=== PATIENT | male | born 1950 | race Caucasian/White ===

== ENCOUNTER 2021-08-24 21:29 | Inpatient (IN) | payer MEDICARE, OTHER ==
[~2021-08-24] VITALS: Ht 172.7 cm; Wt 78.0 kg
--- NOTE | 2021-08-24 23:10 | NUR ---
cable television line technician notes Notified MD regarding direct admit from [facility]. Awaiting for admission orders. Addendum: 08/25/21 at 0200 by HUMBERTO DONG RN wrong time.
--- NOTE | 2021-08-24 23:25 | NUR ---
BOILER TENDERS SUPERVISOR ADMITTING NOTES ADMITTED A 71 Y/0 MALE TO UNIT VIA [facility] ACCOMPANIED BY 2 EMT'S. PT. IS DIRECT ADMIT FROM [facility]. PT. IS A/O X 3-4, ABLE TO MAKE NEEDS KNOWN. IN NO APARRENT DISTRESS NOTED, BREATHING EVEN AND UNLABORED.LUNGS ARE CLEAR ON AUSCULTATION. ON R.A, MANUELA. WELL. NO S/SX OF PAIN AND DISCOMFORT AT THIS TIME. PT. WITH IV ACCESS ON HIS LFA, G#20, INTACT AND PATENT. ORIENTED THE PATIENT TO STAFF AND HIS IMMEDIATE SURROUNDING AND THE IMPORTANCE OF USING CALL LIGHT AND EXPRESSED UNDERSTANDING. PLACE PATIENT IN EXTERNAL ROCK PICKER WITH CURRENT READING OF NSR HR= 90'S, NO CARDIAC DISTRESS VOICED. PHOTOS OF SKIN ISSUES TAKEN AND FILED ON HIS CHART. SAFETY PRECAUTION INITIATED. BED PLACED IN LOWEST POSITION WITH SR-UP X2. CALL LIGHT AND BEDSIDE TABLE WITHIN EASY REACH. WILL CONTINUE TO MONITOR PT. ACCORDINGLY.
[2021-08-24 23:45] VITALS: BP 148/92
--- NOTE | 2021-08-24 23:45 | NUR ---
CATERING BARISTA NOTES PATIENT BG IS 436, PATIENT STATED THAT HE ATE SNACKS ( SANDWICH) BEFORE LEAVING CUT OFF AT [facility]. PATIENT DENIES OF NAUSEA AND WEAKNESS AT THIS TIME. WILL CONTINUE TO MONITOR
[2021-08-25] VITALS: BP 148/92
--- NOTE | 2021-08-25 | NUR ---
professor of surgery notes Asked Pt about his home meds. Pt stated "I have 15 meds lists but I don't remember all of them. I will do it in the morning."
--- NOTE | 2021-08-25 00:05 | NUR ---
telephone sales representative notes Called and informed MD regarding new admissions order. Awaiting for admission orders.
--- NOTE | 2021-08-25 01:05 | NUR ---
telecommunications equipment installer notes Notified MD for second time regarding direct admit from [facility]. Awaiting for admission orders.
--- NOTE | 2021-08-25 02:30 | NUR ---
pin puller notes Called MD for third time to get admission order.
--- NOTE | 2021-08-25 03:05 | NUR ---
RN NOTES SPOKE TO MD CHAVEZ AND GAVE ORDERS FOR ACCUCHECK, INSULIN SLIDING SCALE AND DIET ORDERS, NOTED AND CARRIED OUT. WILL CONTINUE TO MONITOR PATIENT ACCORDINGLY
[2021-08-25] MEDS ORDERED: DEXTROSE 50%-WATER 50 ML DISP.SYRIN IV PRN (03:30)
--- NOTE | 2021-08-25 03:30 | NUR ---
horse breaker notes Collected UA from Pt. Called lab to metal pickling equipment operator the specimen.
[2021-08-25 04:00] VITALS: BP_SYST 143; BP_SYST 158; BP_DIAS 104; BP_DIAS 91
--- NOTE | 2021-08-25 06:35 | NUR ---
OUTBOUND SALES EXECUTIVE CLOSING PT. IS A/O X 3-4, ABLE TO MAKE NEEDS KNOWN. IN NO APARRENT DISTRESS NOTED, BREATHING EVEN AND UNLABORED.LUNGS ARE CLEAR ON AUSCULTATION. ON R.A, MANUELA. WELL. NO S/SX OF PAIN AND DISCOMFORT AT THIS TIME. PT. WITH IV ACCESS ON HIS LFA, G#20, INTACT AND PATENT. PATIENT IN EXTERNAL PROFILE GRINDER WITH CURRENT READING OF NSR HR= 90'S, NO CARDIAC DISTRESS VOICED. SAFETY PRECAUTION IN PLACED.BED IN LOWEST POSITION WITH SR-UP X2. CALL LIGHT AND BEDSIDE TABLE WITHIN EASY REACH. WILL ENDORSED PATIENT TO DAY SHIFT NURSE FOR ALCON.
[2021-08-25] MEDS: INSULIN REGULAR, HUMAN 100 UNIT/ML 3 ML VIAL SQ PRN ×6 (06:44→23:00)
[2021-08-25] MEDS: BLOOD SUGAR DIAGNOSTIC 1 EACH STRIP IN SCH ×4 (06:48→21:48)
[2021-08-25 06:52] LABS: BASOPHILS % (AUTO) 0.5 % (0.0-2.0); EOSINOPHILS % (AUTO) 3.4 % (0.0-6.0); HEMATOCRIT 43 % (39-51); HEMOGLOBIN 14.7 g/dL (13.5-17.5); LYMPHOCYTES # (AUTO) 2.1 K/uL (0.8-4.8); LYMPHOCYTES % (AUTO) 32.4 % (20.0-44.0); MEAN CORPUSCULAR HGB CONC 34 g/dl (31.0-36.0); MEAN CORPUSCULAR VOLUME 91 fL (80-96); MONOCYTES # (AUTO) 0.6 K/uL (0.1-1.30); MONOCYTES % (AUTO) 9.7 % (2.0-12.0); NEUTROPHILS # (AUTO) 3.5 K/uL (1.8-8.9); PLATELET COUNT (AUTO) 247 K/uL (150-450); RED BLOOD CELL COUNT(AUTO) 4.75 MIL/uL (4.5-6.0); WHITE BLOOD COUNT (AUTO) 6.5 K/uL (4.3-11.0)
[2021-08-25 07:05] LABS: CREATININE 1.7 mg/dL (0.6-1.3); MAGNESIUM 1.9 mg/dL (1.8-2.4)
--- NOTE | 2021-08-25 07:30 | NUR ---
SISTER SUPERIOR NOTES PT IN BED, AWAKE, ALERT AND ORIENTED, NO COMPLAINT OF PAIN, NOT IN DISTRESS, STATES THAT HE WANTS TO BE SEEN BY A DOCTOR BY 9AM OR WILL LEAVE THE HOSPITAL.
[2021-08-25 08:00] VITALS: BP 134/81
--- NOTE | 2021-08-25 09:01 | NUR ---
MS RN NOTES PT SEEN AND EXAMINED BY DR. ESPINAL, DISCUSSED PLAN OF CARE WITH PT, PT VERBALIZED UNDERSTANDING, NO SI AT THIS TIME, ORDERS RECEIVED FROM MD TO START NS 100ML/HR.
[2021-08-25] MEDS ORDERED: TRINTELLIX PO (09:08)
[2021-08-25] MEDS ORDERED: INSU100C10 SQ (09:08)
[2021-08-25] MEDS ORDERED: BUPR150T12 PO (09:08)
[2021-08-25] MEDS ORDERED: QUET100T PO (09:08)
[2021-08-25] MEDS ORDERED: INSU100V7 SQ (09:08)
[2021-08-25] MEDS ORDERED: ACET325T53 PO (09:08)
[2021-08-25] MEDS: IV NS 0.9% 1,000 ML IV PRN ×2 (09:26→23:31)
[2021-08-25] MEDS ORDERED: LORAZEPAM 0.5 MG TABLET PO PRN (12:00)
[2021-08-25] MEDS: SERTRALINE HCL 25 MG TABLET PO SCH (12:45)
[2021-08-25 16:00] VITALS: BP 157/100
--- NOTE | 2021-08-25 18:57 | NUR ---
RN MS NOTES PT IN BED, AWAKE, ALERT AND ORIENTED, WATCHING TV, DENIES PAIN, NOT IN DISTRESS, COOPERATIVE AND COMPLIANT WITH CARE, CALL LIGHT WITHIN REACH, BS CHECKED, INSULIN GIVEN PER SLIDING SCALE ORDERED, ALL NEEDS ATTENDED.
--- NOTE | 2021-08-25 19:47 | NUR ---
GRANULATOR TENDER OPENING RECEIVED PT. IS A/O X 3-4, ABLE TO MAKE NEEDS KNOWN. IN NO APARRENT DISTRESS NOTED, BREATHING EVEN AND UNLABORED.LUNGS ARE CLEAR ON AUSCULTATION. ON R.A, MANUELA. WELL. NO S/SX OF PAIN AND DISCOMFORT AT THIS TIME. PT. WITH IV ACCESS ON HIS LFA, G#20, INFUSING NS 100 ML/HR INTACT AND PATENT. SAFETY PRECAUTION IN PLACED.BED IN LOWEST POSITION WITH SR-UP X2. CALL LIGHT AND BEDSIDE TABLE WITHIN EASY REACH. WILL CONTINUE TO MONITOR PATIENT ACCORDINGLY.
[2021-08-25 20:04] VITALS: BP 146/86
--- NOTE | 2021-08-25 21:05 | NUR ---
RN NOTES PATIENT WITH BG OF 436. NO C/O WEAKNESS. RANDOM BLOOD GLUCOSE ORDERED BY . NOTED AND CARRIED OUT.
[2021-08-25] MEDS ORDERED: INSULIN REGULAR, HUMAN 100 UNIT/ML 3 ML VIAL SQ ONE (22:30)
--- NOTE | 2021-08-25 23:10 | NUR ---
DEALER RELATIONSHIP MANAGER NOTES PATIENT RANDOM BLOOD GLUCOSE IS 437, NOTIFIED AND ORDERED TO GIVE HUMULIN R 10 UNITS SQ FOR ONE TIME ONLY, ADMINISTERED TO THE PATIENT ORDERED
--- NOTE | 2021-08-25 23:10 | NUR ---
RN NOTES Informed Romaine Spain-PREET regarding patient's Glucose random result -437, got an order to change insulin sliding scale from mild to moderate, order noted and carried out
--- NOTE | 2021-08-25 23:49 | NUR ---
RN NOTES PATIENT VERBALIZES THAT HE IS ANXIOUS, ENCOURAGE PATIENT TO VERBALIZE MORE HIS FEELINGS AND CONCERN. PRN ATIVAN GIVEN ORDERED. WILL CONTINUE TO MONITOR PATIENT ACCORDINGLY
[2021-08-26] MEDS ORDERED: DEXTROSE 50%-WATER 50 ML DISP.SYRIN IV PRN (01:00)
[2021-08-26] MEDS ORDERED: INSULIN REGULAR, HUMAN 100 UNIT/ML 3 ML VIAL SQ PRN (01:00)
[2021-08-26] MEDS ORDERED: *INSULIN REGULAR(HUMULIN R)HUM 100 UNIT/ML VIAL SQ PRN (01:00)
[2021-08-26] MEDS: BLOOD SUGAR DIAGNOSTIC 1 EACH STRIP VI SCH ×2 (06:11→11:49)
[2021-08-26 06:19] LABS: BASOPHILS % (AUTO) 0.7 % (0.0-2.0); EOSINOPHILS % (AUTO) 4.2 % (0.0-6.0); HEMATOCRIT 44 % (39-51); HEMOGLOBIN 15.1 g/dL (13.5-17.5); LYMPHOCYTES # (AUTO) 2.3 K/uL (0.8-4.8); LYMPHOCYTES % (AUTO) 36.5 % (20.0-44.0); MEAN CORPUSCULAR HGB CONC 35 g/dl (31.0-36.0); MEAN CORPUSCULAR VOLUME 91 fL (80-96); MONOCYTES # (AUTO) 0.7 K/uL (0.1-1.30); MONOCYTES % (AUTO) 11.4 % (2.0-12.0); NEUTROPHILS % (AUTO) 47.2 % (43.0-81.0); PLATELET COUNT (AUTO) 223 K/uL (150-450); RED BLOOD CELL COUNT(AUTO) 4.81 MIL/uL (4.5-6.0); WHITE BLOOD COUNT (AUTO) 6.4 K/uL (4.3-11.0)
--- NOTE | 2021-08-26 06:25 | NUR ---
RN CLOSING NOTES PATIENT IN BED , A/O X 4.IN NO APARRENT DISTRESS NOTED BREATHING EVEN AND UNLABORED. ON R.A, MANUELA. WELL NO S/SX OF PAIN AND DISCOMFORT AT THIS TIME.PATIENT WITH IV AT LFA G=20 WITH IVF NS AT 100 ML/HR,INTACT AND PATENT. ALL NEEDS ATTENDED. ALL DUE MEDS GIVEN.SAFTEY MEASURES PROVIDED.BED LOCKED IN LOWEST POSITION W/ SRX2 UP.CALL LIGHT AND BED SIDE TABLE WITHI EASY REACH. ALL NEEDS ATTENDED.WILL ENDORSED PATIENT TO DAY TIME SHIFT NURSE FOR ALCON.
[2021-08-26 06:56] LABS: CALCIUM, SERUM 8.2 mg/dL (8.5-10.1); CREATININE 1.4 mg/dL (0.6-1.3); POTASSIUM 3.7 mmol/L (3.5-5.1)
--- NOTE | 2021-08-26 07:15 | NUR ---
MS RN NOTES PATIENT IS ASLEEP IN BED, EASY TO AROUSE. ALERT AND ORIENTED X4. NO SOB. NO S/SX OF DISTRESS NOTED. BREATHING IS EVEN AND UNLABORED. PT ON ROOM AIR, TOLERATING WELL. IV ACCESS LFA#20 PATENT AND INTACT WITH NS 0.9% RUNNING AT 100 MLS/HR. SAFETY MEASURES IN PLACE WITH BED LOCKED AT LOW POSITION AND SIDE RAILS UP X2. CALL LIGHT IS WITHIN REACH. WILL CONTINUE TO MONITOR THROUGHOUT SHIFT.
[2021-08-26] MEDS ORDERED: SERT25TA5 PO (08:35)
[2021-08-26] MEDS ORDERED: buPROPion SR 150 MG TABLET.ER PO SCH (09:00)
--- NOTE | 2021-08-26 09:05 | NUR ---
MS RN NOTE WELLBUTRIN OUT OF STOCK IN BOTH OMNICELL. PHARMACY MADE AWARE.
--- NOTE | 2021-08-26 11:46 | NUR ---
MS RN NOTE BS 1ST READING WAS 497, REPEAT BS 452. MADE DR. ESPINAL AWARE WITH NO NEW ORDERS. ADMINISTERED 15 UNITS OR REGULAR INSULIN PER SLIDING SCALE.
[2021-08-26] MEDS: SERTRALINE HCL 25 MG TABLET PO SCH (12:55)
--- NOTE | 2021-08-26 13:00 | NUR ---
MS OTR HAZMAT COMPANY DRIVER NOTE PT WAS DISCHARGED WITH STABLE VITAL SIGNS. DISCHARGE INSTRUCTIONS REVIEWED WITH PATIENT AND DISCHARGE FORM SIGNED. ALL QUESTIONS ANSWERED, VERBALIZED UNDERSTANDING. ID BAND AND IV ACCESS REMOVED. PATIENT WAS PICKED UP BY SISTER IN LAW AND NIECE. ACCOMPANIED PATIENT DOWNSTAIRS OUT OF FACILITY AND OBSERVED PATIENT GET INTO PRIVATE CAR.
[2021-08-26] MEDS ORDERED: QUETIAPINE FUMARATE 100 MG TABLET PO SCH (22:00)
== END 2021-08-26 14:00 | disposition home or self-care (01) | DRG 637 ==
LOC: TELE 23:21 → MED 08-25 13:11
PROVIDERS: ADMIT Family Medicine; ATTEND Family Medicine
DX: E11.649 Type 2 diabetes mellitus with hypoglycemia without coma (principal); G93.41 Metabolic encephalopathy; F32.2 Major depressive disorder, single episode, severe without psychotic features; N17.0 Acute kidney failure with tubular necrosis; F41.9 Anxiety disorder, unspecified; E11.22 Type 2 diabetes mellitus with diabetic chronic kidney disease; I12.9 Hypertensive chronic kidney disease with stage 1 through stage 4 chronic kidney disease, or unspecified chronic kidney disease; N18.9 Chronic kidney disease, unspecified; D72.829 Elevated white blood cell count, unspecified; E87.6 Hypokalemia; E78.5 Hyperlipidemia, unspecified; Z87.19 Personal history of other diseases of the digestive system; Z87.891 Personal history of nicotine dependence; Z83.3 Family history of diabetes mellitus; F43.20 Adjustment disorder, unspecified; F41.0 Panic disorder [episodic paroxysmal anxiety]; M51.16 Intervertebral disc disorders with radiculopathy, lumbar region; E11.42 Type 2 diabetes mellitus with diabetic polyneuropathy; Z79.4 Long term (current) use of insulin; E11.65 Type 2 diabetes mellitus with hyperglycemia
CPT/HCPCS: 36415; 80048-TC; 82945-TC; 82962-TC; 83735-TC; 84100-TC; 85025-TC; 87081-TC; 87086-TC; G0378; J1815; J7030